=== PATIENT | female | born 1955 | race Caucasian/White ===

== ENCOUNTER 2016-11-19 11:11 | Emergency (ER) | payer OTHER ==
[~2016-11-19] VITALS: Ht 162.6 cm; Wt 55.0 kg
[~2016-11-19 11:11] MED LIST: PRED20TA PO
[2016-11-19 11:13] VITALS: Ht 162.6 cm; Wt 55.0 kg
[2016-11-19] MEDS ORDERED: KETOROLAC 30 MG INJ IM STA (11:49)
[2016-11-19] MEDS ORDERED: DIAZEPAM 5 MG TAB PO STA (11:49)
--- NOTE | 2016-11-19 12:55 | RADRPT ---
PROCEDURE: XR Lumbar Spine. CLINICAL INDICATION: Low back pain. TECHNIQUE: 3 views of the lumbar spine available for review COMPARISON: None available FINDINGS: There is normal mineralization, architecture and alignment. No fractures or osseous lesions are jessica ntified. No subluxation is identified. The disk spaces are unremarkable. The facet joints are unr emarkable. The soft tissues are unremarkable. There is arterial vascular calcification. IMPRESSION: Unremarkable lumbar spine x-ray. RPTAT: HGDB .Jarrett Barajas MD, Date Time Electronically viewed and signed by .Jarrett Barajas MD, on 11/19/2016 12:54 .B/
[2016-11-19] MEDS ORDERED: IBUP-1542 PO (13:16)
[2016-11-19] MEDS ORDERED: CYCL-319 PO (13:16)
--- NOTE | 2016-11-19 17:18 | ERD ---
ER Documentation Chief Complaint Date/Time DATE: 11/19/16 TIME: 17:15 Chief Complaint MID BACK PAIN X 8 DAYS S/P FALL HPI This is a 60-year-old female presenting to the emergency department complaining of lumbar back pain status post ground level fall at occurred 8 days ago. Patient states that she slipped and she fell on top of her back. Patient states the pain 8 out of 10 and it is nonradiating. She states that she is able to walk. She denies any saddle anesthesia, bladder or bowel incontinence. Patient has tried naproxen yesterday without any relief. Denies any symptoms of dysuria ROS All systems reviewed and are negative except as per history of present illness. Medications Home Meds Active Scripts Cyclobenzaprine Hcl* (Cyclobenzaprine Hcl*) 10 Mg Tablet, 10 MG PO TID, #20 TAB Prov:RUDOLPH TRAN PA-C 11/19/16 Ibuprofen* (Ibuprofen*) 600 Mg Tablet, 600 MG PO Q6H Y for PAIN AND OR ELEVATED TEMP, #30 TAB Prov:RUDOLPH TRAN PA-C 11/19/16 Prednisone* (Prednisone*) 20 Mg Tab, 40 MG PO DAILY for 4 Days, TAB Prov:ALEC OLSEN MD 04/16/15 Allergies Allergies: Coded Allergies: No Known Allergy (Unverified , 11/19/16) PMhx/Soc Medical and Surgical Hx: pt denies Medical Hx, pt denies Surgical Hx Hx Alcohol Use: Yes Hx Substance Use: No Hx Tobacco Use: Yes Smoking Status: Current every day smoker Physical Exam Vitals Vital Signs Date Time Temp Pulse Resp B/P Pulse Ox O2 Delivery O2 Flow Rate FiO2 11/19/16 11:13 97.4 70 18 154/67 99 Physical Exam GENERAL: WD/WN, in no apparent distress, non-toxic appearing HENT: NC/AT EYES: Conjunctiva normal NECK: Supple PULM: Normal labored breathing CV: Good capillary refill GI: Non-distended, no guarding BACK: no deformities noted, normal spinal curvature, TTP on lumbar region, non- tender on spine midline, EXT: No clubbing, cyanosis, or edema NEURO: Moves on all fours, sensation intact, normal gait SKIN: intact PSYCH: Normal mood Results 24 hrs Current Medications Medications (Trade) Dose Ordered Sig/Park Route PRN Reason Start Time Stop Time Status Last Admin Dose Admin Ketorolac Tromethamine (Toradol) 30 mg ONCE STAT IM 11/19/16 11:49 11/19/16 11:52 DC 11/19/16 12:21 Diazepam (Valium) 5 mg ONCE STAT PO 11/19/16 11:49 11/19/16 11:52 DC Procedures/MDM Female presents to the ER with lumbar back pain and muscle spasms likey due to contusion and strain status post ground level fall that occurred 8 days ago, low suspicion for spinal abscess, vertebral fracture, cauda equina syndrome, spinal stenosis due to physical examination. An x-ray of the lumbar region was done and did not show any evidence of fracture or dislocation. Patient is neurovascularly intact. Prescriptions ibuprofen and Flexeril discussed to return to the ED if not improving as expected or follow-up with a primary care physician. Patient understood and agreed with this plan. Departure Diagnosis: Primary Impression: Back pain Condition: Fair Patient Instructions: Back Pain (Acute Or Chronic), Contusion, Back Referrals: [facility] Usted se hidalgo hecho un examen mdico de control que le indica que no est en kalani condicin que requiera tratamiento urgente en el Departamento de Emergencia. Un estudio ms profundo y el tratamiento de elaine condicin pueden esperar sin ningn riesgo hasta que usted sea atendida/o en el consultorio de elaine mdico o kalani cl lesai. Es responsabilidad suya arreglar kalani aviva para el seguimiento del gerardo. MANEJO DE CONDICIONES NO URGENTES EN EL FUTURO 1) Si usted tiene un mdico de atencin primaria: Usted debera llamar a elaine mdico de atencin primaria antes de venir al departamento de emergencia. Despus de las horas de consultorio, elaine doctor o elaine asociado/a est disponible por telfono. El mdico o enfermero de rah en el servicio telefnico puede asesorarle por pat medio para atender el problema, o gerardo contrario se puede programar kalani aviva. 2) Si usted no tiene un mdico de atencin primaria: Llame al mdico o clnica de referencia que aparece abajo lexii las horas de consultorio para hacer kalani aviva para que le vean. CLINICAS: [facility] [phone] [facility] [phone] [facility] [phone] [facility] [phone] [place] [phone] [facility] [phone] [address] Additional Instructions: Visite a elaine mdico maana para un EXAMEN.Regrese a estas instalaciones si no se mejora new esperbamos o new le dijimos. Nibbe toda la medicina siddharth y new se le indic. Regrese a estas instalaciones si no se mejora new esperbamos o new le dijimos. RUDOLPH TRAN PA-C Nov 19, 2016 17:18
== END 2016-11-19 13:47 | disposition home or self-care (01) ==
LOC: FTE 11:11
DX: S39.92XA Unspecified injury of lower back, initial encounter (principal); F17.210 Nicotine dependence, cigarettes, uncomplicated; W01.0XXA Fall on same level from slipping, tripping and stumbling without subsequent striking against object, initial encounter; Y92.9 Unspecified place or not applicable
CPT/HCPCS: 72100; 96372; J1885; Z7502